=== PATIENT | male | born 1985 | race African-American/Black ===

== ENCOUNTER 2016-11-23 04:02 | Emergency (ER) | payer MEDICAID ==
[~2016-11-23] VITALS: Ht 175.3 cm; Wt 73.0 kg
[2016-11-23 04:29] VITALS: BP 106/73
== END 2016-11-23 09:17 | disposition left against medical advice (07) ==
LOC: ER 08:47
DX: J02.9 Acute pharyngitis, unspecified (principal); Z53.21 Procedure and treatment not carried out due to patient leaving prior to being seen by health care provider